=== PATIENT | female | born 1950 | race Two or more races ===

== ENCOUNTER 2021-06-23 11:10 | Emergency (ER) | payer MEDICAID ==
[~2021-06-23] VITALS: Ht 160 cm; Wt 67.1 kg
--- NOTE | 2021-06-23 11:10 | NUR ---
BIB SON THIS 70YO FEMALE PATIENT, AMBULATORY, AAOX4. WITH CC OF ANTERIOR CHEST WALL PRESSURE X2 DAYS WITH DIZZINESS STARTED TODAY AT 6AM. PLACED PATIENT IN BED. VITALS CHECKED.
--- NOTE | 2021-06-23 11:20 | NUR ---
SEEN BY DR WHARTON AT BEDSIDE.
--- NOTE | 2021-06-23 11:25 | NUR ---
IV CANNULA G20 INSERTED ON RIGHT AC. BLOOD DRAWN AND SENT TO LAB
--- NOTE | 2021-06-23 11:30 | NUR ---
EKG DONE AT BEDSIDE
--- NOTE | 2021-06-23 11:37 | NUR ---
EARLY [employer]ILDH[employer] EDUC[employer]IST AT BEDSIDE FOR XRAY.
[2021-06-23 11:43] LABS: CALCIUM, SERUM 8.7 mg/dL (8.5-10.1); CARBON DIOXIDE 28 mmol/L (21-32); CHLORIDE 104 mmol/L (98-107); CREATININE 0.8 mg/dL (0.6-1.3); GLUCOSE 170 mg/dL (74-106); POTASSIUM 3.5 mmol/L (3.5-5.1); SODIUM SERUM 137 mmol/L (136-145); UREA NITROGEN, BLOOD 18 mg/dL (7-18)
--- NOTE | 2021-06-23 11:53 | NUR ---
PT CAME BACK FROM CT OF HEAD.
--- NOTE | 2021-06-23 11:54 | NUR ---
CXR DONE AT [facility] DEPT
[2021-06-23 12:01] LABS: BASOPHILS # (AUTO) 0.1 K/uL (0.0-0.2); BASOPHILS % (AUTO) 1.3 % (0.0-2.0); EOSINOPHILS % (AUTO) 2.8 % (0.0-6.0); HEMATOCRIT 42 % (33-45); HEMOGLOBIN 13.8 g/dL (11.5-14.8); LYMPHOCYTES # (AUTO) 1.8 K/uL (0.8-4.8); LYMPHOCYTES % (AUTO) 33.4 % (20.0-44.0); MEAN CORPUSCULAR HGB CONC 33 g/dl (31.0-36.0); MEAN CORPUSCULAR VOLUME 91 fL (82-100); MONOCYTES # (AUTO) 0.4 K/uL (0.1-1.30); MONOCYTES % (AUTO) 8.3 % (2.0-12.0); NEUTROPHILS # (AUTO) 2.9 K/uL (1.8-8.9); NEUTROPHILS % (AUTO) 54.2 % (43.0-81.0); PLATELET COUNT (AUTO) 267 K/uL (150-450); RED BLOOD CELL COUNT(AUTO) 4.64 MIL/uL (4.0-5.2); WHITE BLOOD COUNT (AUTO) 5.3 K/uL (4.3-11.0)
[2021-06-23] MEDS ORDERED: MECL-159 PO (12:41)
--- NOTE | 2021-06-23 12:52 | NUR ---
IV removed. Catheter intact and site benign. Pressure and 4x4 applied to site. No bleeding noted. Patient discharged to home in stable condition. Written and verbal after care instructions given. Patient verbalizes understanding of instruction.
[2021-06-23 12:53] VITALS: BP 121/68
== END 2021-06-23 12:55 | disposition home or self-care (01) ==
LOC: ER 11:17
DX: R42 Dizziness and giddiness (principal); E78.5 Hyperlipidemia, unspecified; E11.9 Type 2 diabetes mellitus without complications; Z88.0 Allergy status to penicillin; Z79.899 Other long term (current) drug therapy
CPT/HCPCS: 36415; 70450-TC; 71045-TC; 80048-TC; 84484-TC; 85025-TC